=== PATIENT | female | born 1965 | race Two or more races ===

== ENCOUNTER 2022-02-18 14:25 | Emergency (ER) | payer OTHER ==
[~2022-02-18] VITALS: Ht 157.5 cm; Wt 86.2 kg
[~2022-02-18 14:25] MED LIST: DICLOFENAC POTA50 MG PO
[2022-02-18] MEDS ORDERED: CARBIDOPA-LEVO1 EACH PO (14:33)
== END 2022-02-18 17:33 | disposition home or self-care (01) ==
LOC: ER 14:25
DX: M54.9 Dorsalgia, unspecified (principal)

== ENCOUNTER 2022-02-19 12:11 | Outpatient (CLI) | payer OTHER ==
[~2022-02-19 12:11] MED LIST changes: +CARBIDOPA-LEVO1 EACH PO
== END 2022-02-19 12:40 | disposition home or self-care (01) ==
LOC: MRI 12:11
PROVIDERS: ATTEND Internal Medicine Cardiovascular Disease
DX: G20 Parkinson's disease (principal)
CPT/HCPCS: 72146